=== PATIENT | female | born 1975 | race Two or more races ===

== ENCOUNTER 2019-06-07 11:24 | Emergency (ER) | payer MEDICAID ==
[~2019-06-07] VITALS: Ht 157.5 cm; Wt 86.4 kg
[2019-06-07 11:31] VITALS: BP 134/64
== END 2019-06-07 13:16 | disposition home or self-care (01) ==
LOC: EMS 11:35
DX: L72.9 Follicular cyst of the skin and subcutaneous tissue, unspecified (principal); R03.0 Elevated blood-pressure reading, without diagnosis of hypertension; F17.210 Nicotine dependence, cigarettes, uncomplicated

== ENCOUNTER 2020-01-03 16:15 | Emergency (ER) | payer MEDICAID ==
[~2020-01-03] VITALS: Ht 165.1 cm; Wt 81.8 kg
[2020-01-03] MEDS ORDERED: IBUPROFEN 600 MG TABLET PO ONE (17:15)
[2020-01-03 18:25] VITALS: BP 137/77
== END 2020-01-03 18:25 | disposition home or self-care (01) ==
LOC: EMS 16:15
DX: S42.402A Unspecified fracture of lower end of left humerus, initial encounter for closed fracture (principal); W05.1XXA Fall from non-moving nonmotorized scooter, initial encounter; Y93.89 Activity, other specified; Y92.89 Other specified places as the place of occurrence of the external cause; Y99.8 Other external cause status
CPT/HCPCS: 29105